=== PATIENT | male | born 1960 | race Caucasian/White ===

== ENCOUNTER → 2018-08-31 | Outpatient (CLI) | payer BC ==
--- NOTE | 2018-08-31 16:10 | PCVCIMAG ---
EXAM: BILATERAL LOWER EXTREMITY ARTERIAL DUPLEX INDICATION: Peripheral Arterial Disease. Leg pain. FINDINGS: Right Leg: Elevated systolic velocity 511 cm/s common femoral artery consistent with 95% stenosis. Profunda femoral artery is patent. Severely blunted arterial waveforms throughout the superficial femoral artery, popliteal artery, anterior tibial, peroneal, and posterior tibial arteries without additional stenoses seen. Left Leg: Complete occlusion [place] common femoral artery. Profunda femoral artery is patent. Severely blunted arterial waveforms throughout the superficial femoral artery, popliteal artery, anterior tibial, peroneal, and posterior tibial arteries without additional stenoses seen. IMPRESSION: 95% stenosis right common femoral artery. Complete occlusion left common femoral artery. LOC:[id number]
== END | disposition home or self-care (01) ==
LOC: PCVCIMAG 14:58
DX: I73.9 Peripheral vascular disease, unspecified (principal); Z78.9 Other specified health status
CPT/HCPCS: 93925

== ENCOUNTER → 2018-09-26 | Outpatient (CLI) | payer BC ==
[~2018-09-26] MED LIST: REGADENOSON 0.4 MG/5 ML DISP.SYRIN. IV ONE
--- NOTE | 2018-09-26 16:36 | PCVCIMAG ---
APPROVED REPORT Imaging Protocol: Rest Tc-99m/Stress Tc-99m 1 day Study performed: 09/26/2018 10:55:42 Indication: Claudication, Pre op Patient Location: Out-Patient Stress Nurse: Roxana Redding RN, CLAUDIA Brock Tech:Chris Alonzo NMGAYATHRI Ht: 5 ft 10 in Wt: 220 lbs BSA: 2.17 m2 HR: 54 bpm BP: 151/76 mmHg BMI: 31.5 Rhythm: Sinus Bradycardia Medical History Medical History: Age, PVD, Smoker Medications: Bystolic Allergies: No known drug allergies Exercise History: Sedentary Physical Disabilities: Severe claudication Meds Held (24 hrs): Bystolic Resting Data Rest SPECT myocardial perfusion imaging was performed in supine position 45 minutes following the intravenous injection of 10.6 mCi of Tc-99m Sestamibi. Time of rest injection: 1030 Date: 09/26/2018 Administration Route: IV Administration Site: Right AC Pharmacologic Stress Pharmacologic stress test was performed by injecting Regadenoson 0.4 mg IV push over 10-15 seconds immediately followed by the intravenous injection of 33.8 mCi of Tc-99m Sestamibi. Time of stress injection: 1145 Date: 09/26/2018 Administration Route: IV Administration Site: Right AC Gated Stress SPECT was performed 45 minutes after stress injection. The images were gated to evaluate regional wall motion and calculate left ventricular ejection fraction. Stress Test Details Stress Test: Pharmacologic stress testing performed using 0.4 mg of regadenoson per 5 mL given IV over 10 seconds. Reason for pharmacologic stress test: Claudication. HRMax Heart Rate (APMHR): 163 bpm Resting HR: 54 bpmTarget HR (85% APMHR): 138 bpm Max HR Achieved: 76 bpm % of APMHR: 46 Recovery HR: 71 bpm BP Resting BP: 151/76 mmHg Max BP: 114/62 mmHg Recovery BP: 130/86 mmHg ECG Resting ECG: Sinus Bradycardia Stress ECG: Sinus Rhythm ST Change: None Maximum ST Deviation: 0 mm Arrhythmia: None Recovery ECG: Sinus Rhythm Recovery ST Change: Normal Recovery ST Deviation: 0 mm Recovery Arrhythmia: None Clinical Reason for Termination: Completed protocol Stress Symptoms: Dyspnea Symptoms resolved with caffeine. Stress ECG Conclusion ECG: Non-ischemic Clinical: Non-ischemic Study Quality Study: Good Study Data Post stress, the left ventricular ejection was 67%.. SSS: 0 SRS: 1 SDS: 0 TID = 1.04. Perfusion No evidence of stress induced ischemia or prior myocardial infarction. Wall Motion Normal left ventricular size and function with no regional wall motion abnormalities. Nuclear Conclusion No evidence of stress induced ischemia or prior myocardial infarction. Normal left ventricular size and function with no regional wall motion abnormalities. Post stress, the left ventricular ejection was 67%. No prior study available for comparison. Interpreted by: Mono Turpin MD Electronically Approved: 09/26/2018 14:08:28 <Conclusion> ECG: Non-ischemic Clinical: Non-ischemic
== END | disposition home or self-care (01) ==
LOC: PCVCIMAG 10:06
PROVIDERS: ATTEND Nuclear Medicine Nuclear Cardiology
DX: R00.1 Bradycardia, unspecified (principal); I73.9 Peripheral vascular disease, unspecified; Z01.818 Encounter for other preprocedural examination
CPT/HCPCS: 78452; 93017; A9500; J2785